=== PATIENT | female | born 1945 | race Caucasian/White ===

== ENCOUNTER 2019-03-06 16:28 | Emergency (ER) | payer MEDICARE, OTHER ==
[~2019-03-06] VITALS: Ht 167.6 cm; Wt 83.6 kg
[~2019-03-06 16:28] MED LIST: DICL100G37 TOP; MELO7.5T38 PO
[2019-03-06 17:31] VITALS: Ht 167.6 cm; Wt 83.6 kg
[2019-03-06 19:36] VITALS: BP 108/65; PULSE 78; RESP 16
== END 2019-03-06 19:37 | disposition home or self-care (01) ==
LOC: E/R 16:28
DX: M17.0 Bilateral primary osteoarthritis of knee (principal)
CPT/HCPCS: 99283